=== PATIENT | male | born 1970 | race Asian ===

== ENCOUNTER 2020-06-10 01:28 | Emergency (ER) | payer BC, OTHER ==
[~2020-06-10] VITALS: Ht 177.8 cm; Wt 108.9 kg
[~2020-06-10 01:28] MED LIST: AUGMENTIN 875-1 EAC1 ORAL; CRESTOR20 MG ORAL; METFORMIN HCL1000 M1 ORAL; NIACIN1000 MG PO; PRANDIN2 MG ORAL; TRILIPIX45 MG PO
[2020-06-10 01:35] VITALS: BP 144/91
--- NOTE | 2020-06-10 01:35 | NUR ---
ED Nurse Note: Pt walked in c/o abscess on LT leg. Pt stated he may have been bit by a bug a few days ago but wound is not healing. PT stated he scratched it and the abscess grew in size. 5/10 pain. Hx DMII
--- NOTE | 2020-06-10 01:42 | Emergency Room Report ---
History of Present Illness General Chief Complaint: Skin Rash/Abscess Source: Patient Present Illness HPI This a 49-year-old male with history of diabetes. He presents with chief complaint of infection to the left lower extremity. He said he thought it may have been a bug bite. It was swollen. He tried to squeeze it and it got worse. No fever chills no drainage. Pain is 7 out of 10. Worse with palpation. Better leaving alone. Denies any trauma. Did not see anything biting him. Allergies: Coded Allergies: No Known Allergies (Unverified , 09/25/13) COVID-19 Screening Contact w/high risk pt: No Experienced COVID-19 symptoms?: No COVID-19 Testing performed CEMENT MASON: No Patient History Past Medical History: see triage record, old chart reviewed, DM Past Surgical History: none Pertinent Family History: none Social History: Denies: smoking Immunizations: other Reviewed Nursing Documentation: PMH: Agreed; PSxH: Agreed Nursing Documentation-PMH Hx Diabetes: Yes - DM II Review of Systems Eye: Denies: eye pain, blurred vision ENT: Denies: ear pain, nose congestion, throat swelling Respiratory: Denies: cough, shortness of breath Cardiovascular: Denies: chest pain, palpitations Gastrointestinal: Denies: abdominal pain, diarrhea, nausea, vomiting Musculoskeletal: Denies: back pain, joint pain Skin: Denies: rash Neurological: Denies: headache, numbness Endocrine: Denies: increased thirst, increased urine Hematologic/Lymphatic: Denies: easy bruising All Other Systems: negative except mentioned in HPI Physical Exam Vital Signs Date Time Temp Pulse Resp B/P (MAP) Pulse Ox O2 Delivery O2 Flow Rate FiO2 06/10/20 01:31 98.6 93 16 144/91 (108) 98 Room Air Vitals with high blood pressure Sp02 EP Interpretation: reviewed, normal General Appearance: well appearing, no apparent distress, alert Head: normocephalic, atraumatic Eyes: bilateral eye PERRL, bilateral eye EOMI ENT: hearing grossly normal, normal pharynx Neck: full range of motion, supple, no meningismus Respiratory: chest non-tender, lungs clear, normal breath sounds Cardiovascular #1: regular rate, rhythm, no murmur Gastrointestinal: normal bowel sounds, non tender, no mass, no organomegaly, no bruit, non-distended Musculoskeletal: back normal, normal range of motion, gait/station normal, other - Left lower extremity: On the back of the lower extremity just distal to the calf there is an indurated area of 2 to 3 cm with erythema. There is a central area of eschar. No crepitance. There is edema. Tender to palpation. Psychiatric: mood/affect normal Procedures Incision and Drainage Incision and Drainage : Consent: Verbal Site: Left leg Blade Size: 11 I & D Procedure: betadine prep, sterile drapes applied, sterile dressing applied Wound Location: lower extremity Anesthesia: 1% Lidocaine Volume Anesthetic (ccs): 3 Patient Tolerated: Well Complications: None Progress Area cleaned with Betadine. Local anesthetic 1% lidocaine. I made a 1 cm incision. I remove the necrotic/eschar tissue. There was scant amount of pus expressed. No loculated area. Patient tolerated procedure without any problem. Medical Decision Making Diagnostic Impression: Primary Impression: Abscess ER Course Patient with an abscess to lower extremity. No fasciitis. No deep infection. Will discharge home. Last Vital Signs Date Time Temp Pulse Resp B/P (MAP) Pulse Ox O2 Delivery O2 Flow Rate FiO2 06/10/20 01:35 98.6 72 16 144/91 98 Room Air Status: improved Disposition: HOME, SELF-CARE Condition: Stable Scripts Cephalexin* (KEFLEX*) 500 Mg Capsule 500 MG ORAL BID, #14 CAP Prov: River Arteaga MD 06/10/20 Trimethoprim/Sulfamethoxazole 160/800* (BACTRIM DS TABLET*) 1 Each Tablet 1 TAB ORAL Q12H, #14 TAB 0 Refills Prov: River Arteaga MD 06/10/20 Patient Instructions: Abscess Additional Instructions: Keep wound clean. Clean first with hydrogen peroxide and apply antibiotic ointment. Follow-up with your doctor in 2-3 days for recheck if not better. Return if symptoms worsen. River Arteaga MD Jun 10, 2020 01:42
[2020-06-10] MEDS ORDERED: BACTRIM DS TAB1 EAC1 ORAL (01:57)
[2020-06-10] MEDS ORDERED: CEPHALEXIN500 MG ORAL (01:57)
[2020-06-10] MEDS ORDERED: Cephalexin 500mg cap ORAL ONE (02:00)
[2020-06-10] MEDS ORDERED: Bactrim-DS 1 tab ORAL ONE (02:00)
--- NOTE | 2020-06-10 02:00 | NUR ---
ER DISCHARGE NOTE: Patient is cleared to be discharged per ERMD, pt is aox4, on room air, with stable vital signs. pt was given dc and prescription instructions, pt was able to verbalize understanding, pt id band removed. pt is able to ambulate with steady gait. pt took all belongings.
== END 2020-06-10 02:00 | disposition home or self-care (01) ==
LOC: EMR 01:47
DX: L02.416 Cutaneous abscess of left lower limb (principal); E11.9 Type 2 diabetes mellitus without complications
CPT/HCPCS: 99283